=== PATIENT | male | born 1975 | race Caucasian/White ===

== ENCOUNTER 2018-04-06 10:28 | Outpatient (CLI) | payer OTHER ==
[~2018-04-06] VITALS: Ht 177.8 cm; Wt 95.5 kg
--- NOTE | ~2018-04-06 | CN ---
PATIENT NAME:KATY WHYTE JR. MEDICAL RECORD: [id number] : 73 LOCATION:D.CAT ADMIT DATE: ACCOUNT: [id number] CONSULTING PHYSICIAN: MARIZOL RUIZ MD REFERRING PHYSICIAN: RAFAL LINCOLN MD DATE OF CONSULTATION: 04/06/2018 DIAGNOSES: 1. Chest pain compatible with angina. 2. Shortness of breath. 3. Family history of coronary disease. 4. Hypertension. HISTORY OF PRESENT ILLNESS: This is a gentleman who has untreated hypertension, very strong family history of coronary disease. For the past 2 months, has been having episodes of very classic angina, chest pressure, heaviness-like sensation, it has escalated in the past 2 weeks. He is now having episodes at rest. He presents to the Emergency Room with this, with any minimal exertion it dramatically worsens the chest pain. PHYSICAL EXAMINATION: GENERAL APPEARANCE: Well-nourished, well-developed, appears stated age. Level of distress, comfortable. PSYCHIATRIC: Mental status, alert, normal affect. Orientation, oriented to time, place and person. EYES: Lids and conjunctiva, noninjected. No discharge, no pallor. ENT: Lips, teeth, gums, normal dentition. Oropharynx, no cyanosis, no pallor. NECK: Carotid arteries, bilateral normal upstroke, no bruits, no thrills. JUGULAR VEINS: No jugular venous pressure or distention. CERVICAL LYMPH NODES: Nontender, nonenlarged. THYROID: Not enlarged. Nontender. No nodules. LUNGS: Respiratory effort, unlabored. CHEST: Normal curvature. No thoracic deformity. No chest wall tenderness. Percussion, resonant. Auscultation, clear. No wheezes, no rales, no rhonchi. CARDIOVASCULAR: Precordial exam, nondisplaced. No heaves or pericardial thrills. Rate and rhythm, regular. Heart sounds, normal S1, normal S2. No S3, no gallop, no rub. Systolic murmur, not heard. Diastolic murmur, not heard. EXTREMITIES: No cyanosis, no edema. Peripheral pulses, full and equal in all extremities, except as noted. No bruits appreciated. ABDOMEN: Soft, nondistended. Normal aorta. No bruit. Nontender. No masses. Liver, nontender, no hepatomegaly. Spleen, nontender, no splenomegaly. MUSCULOSKELETAL: No joint tenderness. No joint swelling. No erythema. NEUROLOGICAL: Normal gait, normal strength, normal tone. SKIN: Warm and dry. OVERALL IMPRESSION: Escalating chest pain compatible with angina, most likely has hemodynamically significant coronary disease. Due to his strong family history, we will proceed with coronary angiography. Further care depends upon the findings of the angiography. TRANSINT:[id number] Voice Confirmation ID: [id number] DOCUMENT ID: [id number] CONSULT REPORT [id number] ISABELL RIVERS,KATY RUIZ, MARIZOL GARCIA at 1324 CC: [id number] DICTATION DATE: 04/06/18 1117 [facility] MICA: 04/06/18 1151 DEP CLI 04/06/18 [place] [id number] [place] [address]
--- NOTE | ~2018-04-06 | OP ---
PATIENT NAME: KATY WHYTE JR. MEDICAL RECORD: [id number] :73 LOCATION:D.CAT ADMISSION DATE: SURGEON: MARIZOL RUIZ MD DATE OF OPERATION: 04/06/2018 PROCEDURES: 1. Left heart catheterization. 2. Selective coronary angiography. 3. Left ventriculogram. INDICATION: Chest pain compatible with angina. PROCEDURE IN DETAIL: After informed consent was obtained and after a detailed description of risks, benefits as well as alternative therapies, the patient elected to proceed with angiogram and heart catheterization. The right radial area was prepped and draped in normal sterile fashion. Right radial artery was cannulated via modified Seldinger technique with placement of 6-Japanese sheath. All catheters exchanged through this sheath. FINDINGS: Left ventriculogram was performed in standard 30-degree HOLCOMB view, reveals good cardiac wall motion throughout all segments. Overall ejection fraction estimated at 60%. SELECTIVE CORONARY ANGIOGRAPHY: Left main, left anterior descending, left circumflex, right coronary artery are all smooth-walled vessels with no angiographic evidence of coronary artery disease. OVERALL IMPRESSION: 1. No angiographic evidence of coronary artery disease. 2. Normal left heart pressures. 3. Normal left ventricular systolic function. Chest pain is noncardiac in etiology. No further cardiac workup needs to be ascertained. TRANSINT:[id number] Voice Confirmation ID: [id number] DOCUMENT ID: [id number] MARIZOL RUIZ MD at 1324 CC: [id number] DICTATION DATE: 04/06/18 1418 TRAILER TECHNICIAN: 04/06/18 1522 [facility] CLI 04/06/18 [place] [id number] [place] [id number]
--- NOTE | ~2018-04-06 | HEMODYNAMI ---
PATIENT:KATY WHYTE JR. MEDICAL RECORD: [id number] : 73 LOCATION:[facility] ADMISSION DATE: 04/06/18 Generatedon:04/06/201814:19 Patient name: KATY WHYTE Patient #: [id number] SSN: : 1 04/24/1974 Date of study: 04/06/2018 Page: Of Hemodynamic Procedure Report Patient Data Patient Demographics Procedure consent was obtained First Name: KATY Gender: Male Last Name: ISABELL : 1975 Patient #: [id number] Age: 43 year(s) Race: Unknown Additional ID: [id number] Contact details [address]: [address] [place] [address] State: [place] City: [place] Zip code: [address] Admission Admission Data Admission Date: 04/06/2018 Admission Time: 10:28 Procedure Procedure Types Cath Procedure Diagnostic Procedure LHC LHC w/Coronaries Procedure Description Procedure Date Procedure Date: 04/06/2018 Procedure Start Time: 14:09 Procedure End Time: 14:16 Procedure Staff Name Function Rico Arrieta MD Performing Physician Hanna Tang RT Monitor Yue Parrish RT Scrub Kevin Acosta RN Nurse Procedure Data Cath Procedure Fluoroscopy Diagnostic fluoroscopy Total fluoroscopy Time: 0.9 time: 0.9 min min Diagnostic fluoroscopy Total fluoroscopy dose: 263 dose: 263 mGy mGy Contrast Material Contrast Material Type Amount (ml) Isovue 300 38 Entry Location Entry Primary Successful Side Size Upsize Upsize Entry Closure Sánchez ccessful Closure Location (Fr) 1 (Fr) 2 (Fr) Remarks Device Remarks Radial Right 6 Fr Mechanical artery Short Compression Estimated blood loss: 5 ml Diagnostic catheters Device Type Used For End Catheter Placement DIAGNOSTIC [place] 110cm 5 Multi-vessel Fr catheter ([id number]) Angiography Procedure Complications No complications Procedure Medications Medication Administration Route Dosage 0.9% NaCl I.V. 100 ml/hr Oxygen etCO2 Nasal cannula 2 l/min Heparin Flush Bag added to field 2 bags (1000units/500ml NS) Lidocaine 2% added to field 20 Radial Cocktail added to field 1 syringe (Verapomil 2mg/Nitro 400mcg/Heparin 1500units) Versed I.V. 2 mg Fentanyl I.V. 100 mcg Versed I.V. 1 mg Radial Cocktail I.A. 1 syringe (Verapomil 2mg/Nitro 400mcg/Heparin 1500units) Hemodynamics Rest Heart Rate: 63 (bpm) Snapshots Pre Cath Intra NCS Post Cath Vital Signs Time Heart Resp SPO2 etCO2 NIBP (mmHg) Rhythm Pain Sedation Rate (ipm) (%) (mmHg) Status Level (bpm) 13:55:21 76 14 96 0 129/79(101) NSR 0 (11) 10(A) , No pain 13:59:31 73 15 96 34 126/76(98) NSR 0 (11) 10(A) , No pain 14:03:39 73 13 96 27.9 126/81(98) NSR 0 (11) 10(A) , No pain 14:07:47 77 11 94 21.8 130/81(105) NSR 0 (11) 10(A) , No pain 14:12:03 92 13 96 0 109/66(83) NSR 0 (11) 10(A) , No pain 14:16:05 78 11 95 27.9 118/80(98) NSR 0 (11) 10(A) , No pain Medications Time Medication Route Dose Verified Delivered Reason Notes Effectiveness by by 13:53:33 0.9% NaCl I.V. 100 Kevin Kevin Per ml/hr Karla Acosta physician RN RN 13:53:45 Oxygen etCO2 2 l/min Kevin Kevin Per Nasal Karla Acosta physician cannula RN RN 13:53:55 Heparin Flush added 2 bags Kevin Kevin used for Bag to Lorigan Lorigan procedure (1000units/500ml field RN RN NS) 13:54:05 Lidocaine 2% added 20ml Kevin Kevin for local to vial Lorigan Lorigan anesthetic RN RN 13:54:15 Radial Cocktail added 1 Kevin Kevin used for (Verapomil to syringe Lorigan Lorigan procedure 2mg/Nitro RN RN 400mcg/Heparin 1500units) 14:01:43 Versed I.V. 2 mg Kevin Kevin for sedation Karla Acosta RN RN 14:01:56 Fentanyl I.V. 100 mcg Kevin Brown for sedation Karla Acosta RN, RN 14:08:52 Versed I.V. 1 mg Kevin Brown for sedation Karla Acosta RN, RN 14:11:00 Radial Cocktail I.A. 1 Kevin Gómez for (Verapomil syringe Karla shah 2mg/Nitro RN 400mcg/Heparin 1500units) Procedure Log Time Note 13:34:10 Diagnostic Cath Status : Urgent 13:34:29 Kevin Acosta RN sent for patient. Start room use. 13:34:29 Time tracking: Regular hours (M-F 7:00 - 5:00) 13:34:33 Plan of Care:Hemodynamics will remain stable., Cardiac rhythm will remain stable., Comfort level will be maintained., Respiratory function will remain adequate., Patient/ family verbilizes understanding of procedure., Procedure tolerated without complication., Recovers from procedure without complications.. 13:46:23 Patient received from ED to CCL 2 Alert and oriented. Tansferred to table in Supine position. 13:46:24 Warm blankets applied, and jennifer hugger turned on for patient comfort. 13:46:25 Correct patient and procedure confirmed by team. 13:46:26 Signed procedure consent form obtained from patient. 13:46:27 ECG and BP/O2 sat monitors applied to patient. 13:53:33 0.9% NaCl 100 ml/hr I.V. was administered by Kevin Acosta RN; Per physician; 13:53:45 Oxygen 2 l/min etCO2 Nasal cannula was administered by Kevin Acosta RN; Per physician; 13:53:55 Heparin Flush Bag (1000units/500ml NS) 2 bags added to field was administered by Kevin Acosta RN; used for procedure; 13:54:05 Lidocaine 2% 20ml vial added to field was administered by Kevin Acosta RN; for local anesthetic; 13:54:15 Radial Cocktail (Verapomil 2mg/Nitro 400mcg/Heparin 1500units) 1 syringe added to field was administered by Kevin Acosta RN; used for procedure; 13:54:16 Vital chart was started 13:54:18 Baseline sample Acquired. 13:54:21 Rhythm: sinus rhythm 13:54:22 Full Disclosure recording started 13:54:26 H&P Date Dictated: 04/06/2018 Within 30 days and on chart., H&P Addendum completed by physician on day of procedure. (MUST COMPLETE FOR ALL OUTPATIENTS). 13:54:27 Pre-procedure instructions explained to patient. 13:54:28 Pre-op teaching completed and patient verbalized understanding. 13:54:28 Family in waiting room. 13:54:30 Patient NPO since Midnight. 13:54:32 Is the patient allergic to Iodine/contrast media? No. 13:54:38 Was the patient premedicated? No 13:54:40 Is patient on blood thinner?Yes 13:54:43 ACC The patient was administered the following blood thiners within the last 24 hours: ACCPlavix 13:54:46 Patient diabetic? No. 13:54:48 Previous problem with sedation/anesthesia? No ? 13:54:56 Snore? Yes 13:54:57 Sleep apnea? No 13:54:57 Deviated septum? No 13:54:58 Opens mouth fully? Yes 13:54:59 Sticks out tongue? Yes 13:55:35 Airway obstruction? No ? 13:55:39 Dentures? No ? 13:55:41 Pre procedure: right dorsailis pedis pulse 2+ Normal; easily identifiable; not easily obliterated 13:55:44 Pre procedure: left dorsailis pedis pulse 2+ Normal; easily identifiable; not easily obliterated 13:55:47 Patient pain scale 0/10 ?. 13:55:49 Modified Venu's test Radial < 7 seconds 13:55:56 IV patent on arrival in left forearm with 0.9% NaCl at KVO. 13:55:59 Lab results completed and on chart. 13:56:03 Right Radial & Right Groin area was prepped with chlora-prep and draped in sterile fashion 13:56:04 Alarms reviewed by R. N. 13:56:05 Sharps counted by scrub and verified by R.N. 13:57:49 Physician arrived 13:57:50 --------ALL STOP TIME OUT------ 13:57:51 Final Timeout: patient, procedure, and site verified with staff and physician. All members of the team are in agreement. 13:57:53 Right Radial & Right Groin site verified by team. 13:57:56 Physical assessment completed. ASA score P 2 - A patient with mild systemic disease as per Rico Arrieta MD. 13:57:59 Sedation plan: IV Moderate Sedation Medication:Versed, Fentanyl 13:58:14 Use device set Radial Dx or PCI 13:58:15 ACIST Syringe (48350) opened to sterile field. 13:58:15 Medline Cath Pack ([id number]) opened to sterile field. 13:58:16 Bag Decanter (2002S) opened to sterile field. 13:58:16 DIAGNOSTIC WIRE .035 260cm J wire (027970) opened to sterile field. 13:58:16 ACIST Hand Control (54287) opened to sterile field. 13:58:17 ACIST Manifold (76626) opened to sterile field. 13:58:17 Tegaderm 4 x 4 (1626W) opened to sterile field. 13:58:18 MBrace Wrist Support ([id number]) opened to sterile field. 13:58:19 SHEATH 6FR Slender (37-8763) opened to sterile field. 14:01:43 Versed 2 mg I.V. was administered by Kevin Acosta RN; for sedation; 14:01:56 Fentanyl 100 mcg I.V. was administered by Kevin Acosta RN; for sedation; 14:07:58 Zero performed for pressure channel P1 14:08:13 Procedure started. 14:08:52 Versed 1 mg I.V. was administered by Kevin Acosta RN; for sedation; 14:09:33 Local anesthetic to right radial artery with Lidocaine 2% by Rico Arrieta MD.INITIAL ACCESS ONLY 14:10:40 A 6 Fr Short sheath was inserted into the Right Radial artery 14:10:55 A DIAGNOSTIC [place] 110cm 5 Fr catheter (485206) was advanced over the wire and used for Multi-vessel Angiography. 14:11:00 Radial Cocktail (Verapomil 2mg/Nitro 400mcg/Heparin 1500units) 1 syringe I.A. was administered by Rico Arrieta MD; for vasodilation; 14:11:50 LV hemodynamics recorded. 14:11:51 LV gram done using HOLCOMB 14:11:53 Injector settings: Ml/sec: 5, Volume: 15, 14:12:05 EF : 55 % 14:12:11 LCA angiography performed. 14:12:16 Injector settings: Ml/sec: 3, Volume: 6, 14:12:50 RCA angiography performed. 14:12:52 Injector settings: Ml/sec: 3, Volume: 6, 14:13:55 Catheter removed. 14:13:59 TR BAND Standard ([id number]) opened to sterile field. 14:14:14 Sheath removed intact; hemostasis achieved with Mechanical Compression to the Right Radial artery. 14:14:16 Procedure ended.(Physican Out) 14:14:48 Fluoroscopy time 00.90 minutes. 14:15:17 Fluoroscopy dose: 263 mGy 14:15:17 Flurop Dose total: 263 14:15:22 Contrast amount:Isovue 300 38ml. 14:15:23 Sharps counted by scrub and verified by R.N. 14:15:30 TR band inflated with 10cc of air. 14:15:31 Insertion/operative site no bleeding no hematoma. 14:15:58 Post right radial artery:stable 14:16:02 Post Procedure Pulses reassessed and unchanged 14:16:04 Post procedure rhythm: unchanged. 14:16:07 Estimated blood loss: 5 ml 14:16:08 Post procedure instruction explained to patient.Patient verbalizes understanding. 14:16:08 Patient needs reinforcement of post procedure teaching. 14:16:27 Procedure and supply charges have been captured, reviewed, submitted and are correct. 14:16:31 Procedure Complication : No complications 14:16:33 Vital chart was stopped 14:16:33 See physician's report for complete and final results. 14:16:36 Report given to Pre/Post Procedure Room. 14:16:39 Patient transfered to Pre/Post Procedure Room with Stretcher. 14:16:40 Procedure ended. 14:16:40 Full Disclosure recording stopped 14:16:44 End room use (Document Last) Device Usage Item Name Manufacture Quantity Catalog Hospital Part Current Minimal Lot# / Number Charge Number Stock Stock Serial# Code [facility] 1 69780 [id number] 407262 628135 20 Syringe Nanoogo (40873) Systems Inc Medline Medline 1 [id number] 896570 38520 525386 5 Cath Pack ([id number]) Bag Microtek 1 024478 94642 944210 5 Decanter Medical Inc. () DIAGNOSTIC [address] [facility] 1 008976 528749 074665 665659 30 WIRE .035 260cm J wire (078297) ACIST Hand Acist 1 75990 310275 191535 480898 5 Control Medical (88008) Systems Inc ACIST Acist 1 54240 784220 061180 523274 5 Manifold Medical (46322) Systems Inc Tegaderm 4 3M 1 1626W 137470 504657 941900 5 x 4 (1626W) MBrace Advanced 1 140-0250-00 081849 13574 668251 5 Wrist Vascular Support Dynamics ([id number]) SHEATH 6FR Terumo 1 [id number] 010686 226352 609825 5 Slender (80-1060) DIAGNOSTIC Terumo 1 91-6089 565609 175025 470792 5 [place] 110cm 5 Fr catheter (565937) TR BAND Terumo 1 [id number] 114880 973249 240532 40 Standard ([id number]) Signature Audit [place] [address] Time Signature Unsigned Intra-Procedure 04/06/2018 Hanna Tang 2:19:23 PM RT(R) Signatures Monitor : Hanna Tang RT Signature : Date : Time : [facility] [address] [place] [address]
[2018-04-06 10:31] VITALS: Ht 177.8 cm; Wt 95.5 kg
[2018-04-06 11:02] LABS: BASOPHILS 0.2 % (0-2); EOSINOPHILS 1.2 % (0-7); HEMATOCRIT 41.7 % (42.0-54.0); HEMOGLOBIN 14.4 g/dL (13.5-17.5); MCH 32.7 pg (26.0-34.0); MCHC 34.5 g/dL (31.0-37.0); MCV 94.8 fL (80.0-100.0); MEAN PLATELET VOLUME 10.2 fL (7.4-10.4); MONOCYTES 9.8 % (2-11); NEUTROPHILS 50.8 % (40-80); PLATELET COUNT 206 10x3/uL (130-400); RDW 12.6 % (11.5-14.5); WBC 5.1 10x3/uL (4.8-10.8)
[2018-04-06 11:22] LABS: ALBUMIN 3.4 g/dL (3.4-5.0); ALKALINE PHOSPHATASE 64 U/L (46-116); ALT (SGPT) 33 U/L (10-68); BILIRUBIN - TOTAL 0.29 mg/dL (0.2-1.3); CALC OSMOLALITY 282 mosm/kg (275-300); CALCIUM 8.4 mg/dL (8.5-10.1); CARBON DIOXIDE 24.8 mmol/L (21.0-32.0); CHLORIDE - SERUM 107 mmol/L (98-107); CREATININE - SERUM 0.9 mg/dL (0.6-1.3); GLUCOSE 112 mg/dL (74-106); POTASSIUM - SERUM 4.3 mmol/L (3.5-5.1); PROTEIN - SERUM 7.3 g/dL (6.4-8.2); SODIUM 141 mmol/L (136-145); UREA NITROGEN 14 mg/dL (7-18); eGFR NON AFRICAN AMERICAN > 90 mL/min (90-120)
[2018-04-06 11:38] LABS: CKMB 0.3 U/L (0.0-3.6); CREATINE KINASE 58 UL (21-232); PRO BNP 76 pg/mL (0-125)
[2018-04-06 11:39] LABS: TROPONIN-I < 0.017 ng/mL (0.000-0.060)
[2018-04-06 13:42] VITALS: BP 138/79
== END 2018-04-06 17:02 | disposition home or self-care (01) ==
LOC: D.ER 10:28 → D.CATH 10:28 → D.ER 13:44 → EDSTATUS 14:22 → D.CATH 14:23
PROVIDERS: Emergency Medicine
DX: R07.89 Other chest pain (principal); Z01.812 Encounter for preprocedural laboratory examination